=== PATIENT | female | born 1940 | race Caucasian/White ===

== ENCOUNTER → 2018-02-04 | Outpatient (CLI) | payer MEDICARE | END | disposition home or self-care (01) | LOC: CFH 13:13 | PROVIDERS: ATTEND Internal Medicine | DX: J45.909 Unspecified asthma, uncomplicated (principal); M41.85 Other forms of scoliosis, thoracolumbar region; M51.35 Other intervertebral disc degeneration, thoracolumbar region; R06.00 Dyspnea, unspecified | CPT/HCPCS: 71250 ==

== ENCOUNTER → 2018-07-21 | Outpatient (CLI) | payer MEDICARE | END | disposition home or self-care (01) | LOC: CFH 13:13 | DX: R92.8 Other abnormal and inconclusive findings on diagnostic imaging of breast (principal); N63.12 Unspecified lump in the right breast, upper inner quadrant | CPT/HCPCS: 77065 ==

== ENCOUNTER 2018-07-22 09:37 | Outpatient (CLI) | payer MEDICARE ==
[2018-07-22] MEDS ORDERED: LIDOCAINE 1%-EPI 1:100K, 20ML ONE (11:08)
[2018-07-22] MEDS ORDERED: SODIUM BICARBONATE 4.0%, 5ML ONE (11:08)
[2018-07-22] MEDS ORDERED: LIDOCAINE 1%, 20ML ONE (11:08)
[2018-08-15] MEDS ORDERED: MECL12.52 PO (13:25)
[2018-08-15] MEDS ORDERED: HYDR25TA11 PO (13:25)
[2018-08-15] MEDS ORDERED: ESTR2TAB4 PO (13:25)
[2018-08-15] MEDS ORDERED: ALBU8.5H8 PO (13:25)
[2018-08-15] MEDS ORDERED: MONT10TA6 PO (13:25)
[2018-08-15] MEDS ORDERED: LOPE1TAB4 PO (13:25)
[2018-08-15] MEDS ORDERED: CRAN200C2 PO (13:25)
[2018-08-15] MEDS ORDERED: GLUCOSAMINE MSM PO (13:25)
[2018-08-15] MEDS ORDERED: VIT1CAPS44 PO (13:25)
[2018-08-15] MEDS ORDERED: VITAMIN D PO (13:25)
== END 2018-07-22 23:59 | disposition home or self-care (01) ==
LOC: CFH 09:37
DX: C50.911 Malignant neoplasm of unspecified site of right female breast (principal); Z17.0 Estrogen receptor positive status [ER+]
CPT/HCPCS: 19083; 77065; 88305; 88360; J3490; 19285; 88361

== ENCOUNTER → 2018-08-15 | Outpatient (CLI) | payer MEDICARE ==
[~2018-08-15] MED LIST: ALBU8.5H8 PO; CRAN200C2 PO; ESTR2TAB4 PO; GLUCOSAMINE MSM PO; HYDR25TA11 PO; LOPE1TAB4 PO; MECL12.52 PO; MONT10TA6 PO; VIT1CAPS44 PO; VITAMIN D PO
== END | disposition home or self-care (01) ==
LOC: STAR 12:39
PROVIDERS: ATTEND Surgery
DX: Z13.820 Encounter for screening for osteoporosis (principal)
CPT/HCPCS: 93005

== ENCOUNTER 2018-08-22 11:06 | Day surgery (SDC) | payer MEDICARE ==
[2018-08-15 13:29] VITALS: BP 114/78
[~2018-08-22] VITALS: Ht 167.6 cm; Wt 69.1 kg
[~2018-08-22 11:06] MED LIST changes: +BUPIVACAINE/PF-EPI 0.5% 1:200K ONE; +ISOSULFAN BLUE 10 MG/ML, 5ML IV ONE
[2018-08-22] MEDS ORDERED: ONDANSETRON ODT 8 MG PO ONE ×2 (11:30)
[2018-08-22] MEDS ORDERED: ACETAMINOPHEN 500 MG TABLET PO ONE ×2 (11:30)
[2018-08-22] MEDS ORDERED: LACTATED RINGERS 1,000 ML IV SCH (11:41)
[2018-08-22 11:45] VITALS: BP 114/78
[2018-08-22] MEDS ORDERED: LIDOCAINE-MPF 1%, 5ML ONE (11:50)
[2018-08-22] MEDS ORDERED: MIDAZOLAM 1 MG/ML, 2ML ONE (12:20)
[2018-08-22] MEDS ORDERED: FENTANYL PF 250 MCG/5ML ONE (12:20)
[2018-08-22] MEDS ORDERED: OXYcodone 5 MG/5 ML ORAL.SOL UDC PO PRN (13:30)
[2018-08-22] MEDS ORDERED: ALBUTEROL/IPRATROPIUM 2.5MG/0.5MG, 3 ML NPPB PRN (13:30)
[2018-08-22] MEDS ORDERED: MIDAZOLAM 1 MG/ML, 2ML IV PRN (13:30)
[2018-08-22] MEDS ORDERED: MEPERIDINE/PF 25MG/0.5ML IVPush PRN (13:30)
[2018-08-22] MEDS ORDERED: hydrALAzine 20 MG/ML, 1ML IV PRN (13:30)
[2018-08-22] MEDS ORDERED: PROMETHAZINE 25 MG/ML, 1ML IV PRN (13:30)
[2018-08-22] MEDS ORDERED: ONDANSETRON 2MG/ML, 2ML IV PRN (13:30)
[2018-08-22] MEDS ORDERED: HYDROmorphone 2 MG/ML, 1ML IVPush PRN (13:30)
[2018-08-22] MEDS ORDERED: PROPOFOL 10 MG/ML, 20ML ONE (13:41)
[2018-08-22] MEDS ORDERED: CEFAZOLIN 1,000 MG ONE (13:41)
[2018-08-22] MEDS ORDERED: OXYcodone 5 MG/5 ML ORAL.SOL UDC ONE (14:06)
[2018-08-22] MEDS ORDERED: FENTANYL PF 100 MCG/2ML ONE (14:29)
[2018-08-22] MEDS: FENTANYL PF 100 MCG/2ML IV PRN ×2 (14:31→14:41)
== END 2018-08-22 16:35 | disposition home or self-care (01) ==
LOC: OUT 11:06 → EDSTATUS 14:30 → OUT 16:35
PROVIDERS: ATTEND Surgery
DX: D05.11 Intraductal carcinoma in situ of right breast (principal); R59.1 Generalized enlarged lymph nodes; J45.909 Unspecified asthma, uncomplicated; Z87.39 Personal history of other diseases of the musculoskeletal system and connective tissue; Z98.890 Other specified postprocedural states; Z72.89 Other problems related to lifestyle; Z87.891 Personal history of nicotine dependence
CPT/HCPCS: 19301; 38525; 38792; 76098; 88305; 88307; A9541; C1729; J0690; J2250; J2704; J3010; J7120; Q0162

== ENCOUNTER 2018-09-08 08:15 | Outpatient (CLI) | payer MEDICARE ==
[~2018-09-08 08:15] MED LIST changes: -BUPIVACAINE/PF-EPI 0.5% 1:200K ONE; -ISOSULFAN BLUE 10 MG/ML, 5ML IV ONE
== END 2018-09-08 23:59 | disposition home or self-care (01) ==
LOC: ROC 08:15
PROVIDERS: ATTEND Radiology Radiation Oncology
DX: Z08 Encounter for follow-up examination after completed treatment for malignant neoplasm (principal); R53.0 Neoplastic (malignant) related fatigue; Z85.3 Personal history of malignant neoplasm of breast; Z87.891 Personal history of nicotine dependence; Z72.89 Other problems related to lifestyle
CPT/HCPCS: 99214; G0463

== ENCOUNTER 2018-11-10 09:47 | Outpatient (CLI) | payer MEDICARE | END 2018-11-10 23:59 | disposition home or self-care (01) | LOC: ROC 09:47 | PROVIDERS: ATTEND Radiology Radiation Oncology | DX: Z08 Encounter for follow-up examination after completed treatment for malignant neoplasm (principal); Z85.3 Personal history of malignant neoplasm of breast | CPT/HCPCS: 99213; G0463 ==

== ENCOUNTER → 2018-12-29 | Outpatient (CLI) | payer MEDICARE | END | disposition home or self-care (01) | LOC: CFH 13:31 | PROVIDERS: ATTEND Internal Medicine Hematology & Oncology | DX: C50.211 Malignant neoplasm of upper-inner quadrant of right female breast (principal) | CPT/HCPCS: 77065; G0279 ==

== ENCOUNTER 2019-01-26 07:28 | Outpatient (CLI) | payer MEDICARE | END 2019-01-26 23:59 | disposition home or self-care (01) | LOC: ROC 07:28 | PROVIDERS: ATTEND Radiology Radiation Oncology | DX: Z08 Encounter for follow-up examination after completed treatment for malignant neoplasm (principal); Z85.3 Personal history of malignant neoplasm of breast | CPT/HCPCS: 99213; G0463 ==

== ENCOUNTER → 2019-06-22 | Outpatient (CLI) | payer MEDICARE ==
[~2019-06-22] MED LIST changes: +ALBU2.5V NEB; +FLUT1AER INH; +HYDR-826 PO; -HYDR25TA11 PO; +PRED20TA PO
== END | disposition home or self-care (01) ==
LOC: CFH 12:04
PROVIDERS: ATTEND Radiology Radiation Oncology
DX: C50.211 Malignant neoplasm of upper-inner quadrant of right female breast (principal)
CPT/HCPCS: 77066; G0279

== ENCOUNTER 2019-06-23 14:29 | Observation (INO) | payer MEDICARE ==
[~2019-06-23] VITALS: Ht 167.6 cm; Wt 17.3 kg
[~2019-06-23 14:29] MED LIST changes: -ALBU2.5V NEB; -FLUT1AER INH; -PRED20TA PO
--- NOTE | 2019-06-23 14:44 | NUR ---
PT QUINCY CHILDS FROM DR. LAST'S OFFICE FOR TACHYPNEA/LOW O2 SATURATION. PT HAS HX OF ALLERGY-INDUCED ASTHMA, C/O SOB X A COUPLE DAYS. STATES SHE'S BEEN MOVING ALL HER STUFF OUT OF HER HOUSE AND "THERE'S A LOT OF DUST". ALSO C/O COUGH WITH GREEN PHLEGM. PER EMS, SPO2 WAS 84% ON RA, INCREASED TO 95% ON 4L. IV STARTED BY EMS. OTHER VS: 137/91, HR 98, RR 30. PT ARRIVES TO ED A&OX4, RR 30s, O2 IN PLACE AT 4L NC. ERP AT BS NOW.
--- NOTE | 2019-06-23 14:54 | NUR ---
AT BS. PT UNDERSTANDS POC.
[2019-06-23] MEDS ORDERED: SODIUM CHLORIDE FLUSH 10ML SYR IVF ONE (15:00)
[2019-06-23 15:05] LABS: MEAN CORPUSCULAR VOLUME 90.7 fL (80-100); RED BLOOD COUNT 4.62 x10^6/uL (3.82-5.3)
[2019-06-23 15:06] LABS: BASOPHILS # (AUTO) 0.02 x10^3/uL (0-0.1); BASOPHILS % (AUTO) 0 % (0-1); EOSINOPHILS # (AUTO) 0.13 x10^3/uL (0-0.4); EOSINOPHILS % (AUTO) 2 % (1-7); LYMPHOCYTES # (AUTO) 0.41 x10^3/uL (1-3.4); LYMPHOCYTES % (AUTO) 6 % (22-44); MD NO; MEAN CORPUSCULAR HEMOGLOBIN 30.3 pg (27.0-34.8); MEAN CORPUSCULAR HGB CONC 33.4 g/dL (32.4-35.8); MEAN PLATELET VOLUME 7.9 fL (7.4-10.4); MONOCYTES # (AUTO) 1.03 x10^3/uL (0.2-0.8); MONOCYTES % (AUTO) 16 % (2-9); NEUTROPHILS % (AUTO) 76 % (42-75); PLATELET COUNT 258 x10^3/uL (130-400); RED CELL DISTRIBUTION WIDTH 12.9 % (9.6-15.2)
--- NOTE | 2019-06-23 15:11 | NUR ---
PT AMBULATED TO BR WITHOUT DIFFICULTY.
--- NOTE | 2019-06-23 15:12 | NUR ---
Note ling in EDM - 06/23/19 at 1513 by HOMAR PT STATES SHE CAN'T PROVIDE A URINE SAMPLE. SWEARING, WANTS TO LEAVE. ERP NOTIFIED.
[2019-06-23 15:21] LABS: ALBUMIN 3.3 g/dL (3.4-5.0); ANION GAP 6 mmol/L (5-15); CALCIUM 8.6 mg/dL (8.5-10.1); CHLORIDE 107 mmol/L (98-107)
[2019-06-23 15:27] LABS: CREATININE 0.56 mg/dL (0.55-1.02); TROPONIN I < 0.015 ng/mL (0.000-0.045)
--- NOTE | 2019-06-23 15:35 | NUR ---
UPDATED PT ON POC. AT BS.
[2019-06-23] MEDS ORDERED: FLUT1AER INH (16:04)
[2019-06-23 16:12] LABS: MICROSCOPIC AUTO
[2019-06-23 16:25] LABS: CULTURE INDICATED? NO
--- NOTE | 2019-06-23 16:40 | NUR ---
PT UNDERSTANDS PLAN FOR THORACENTESIS. C/O 11/11 PAIN TO L CHEST, ERP NOTIFIED. VSS.
[2019-06-23] MEDS ORDERED: MORPHINE SULFATE 4 MG/ML, 1ML IVPush PRN (17:00)
[2019-06-23] MEDS ORDERED: ONDANSETRON 2MG/ML, 2ML IVPush ONE (17:00)
--- NOTE | 2019-06-23 17:01 | NUR ---
PT STATES L SIDED CHEST PAIN RESOLVED NOW, DECLINES MEDICATION. STATES, "IT WAS LIKE GAS PAIN BUT IT'S GONE NOW".
--- NOTE | 2019-06-23 17:16 | NUR ---
RADIOLOGIST AT BS FOR THORACENTESIS.
[2019-06-23] MEDS ORDERED: LIDOCAINE 1%, 10ML ONE (17:25)
--- NOTE | 2019-06-23 18:02 | NUR ---
THORACENTESIS DONE, PT TOLERATED WELL. 1L OF FLUID REMOVED. GAUZE/TEGADERM DRESSING TO L CHEST, CDI. PT STATES SHE FEELS MUCH BETTER. AMBULATED TO WITH STAND BY ASSIST WITHOUT DIFFICULTY.
--- NOTE | 2019-06-23 18:25 | NUR ---
REPORT RECEIVED FROM CANDICE MARSHALL.
--- NOTE | 2019-06-23 18:30 | NUR ---
ERP UPDATED ON PT STATUS. PT AND UPDATED ON POC. PT MOVED TO ROOM 2 FOR HOUSE CONVENIENCE. REPORTED TO ALETHEA RN & AZUCENA RN.
--- NOTE | 2019-06-23 18:31 | NUR ---
PATIENT AMBULATED AROUND UNIT WITH A STEADY GAIT. O2 SAT 85%, HR 90-105 WHILE AMBULATING. PATIENT SITTING ON GURNEY 88% ON ROOM AIR. WILL NOTIFY PROVIDER.
--- NOTE | 2019-06-23 18:51 | NUR ---
NOTIFIED DR. RYAN THAT PATIENT'S ROOM AIR SPO2 WHILE AMBULATING AVERAGED ABOUT 85% AND DIPPED LOW 83%. PATIENT TO BE ADMITTED.
--- NOTE | 2019-06-23 19:01 | NUR ---
report received from julio/sravan bran.
--- NOTE | 2019-06-23 19:22 | NUR ---
PT TO CT AT THIS TIME.
[2019-06-23] MEDS ORDERED: CRANBERRY EXTRACT 200 MG PO SCH (19:30)
[2019-06-23] MEDS ORDERED: POLYETHYLENE GLYCOL 17 GM PACKET PO PRN (19:30)
[2019-06-23] MEDS ORDERED: ACETAMINOPHEN 325 MG TABLET PO PRN (19:30)
[2019-06-23] MEDS ORDERED: OXYcodone IR 5MG TABLET PO PRN (19:30)
[2019-06-23] MEDS ORDERED: ONDANSETRON ODT 4 MG PO PRN (19:30)
[2019-06-23] MEDS ORDERED: BISACODYL 10 MG SUPP PR PRN (19:30)
--- NOTE | 2019-06-23 19:36 | NUR ---
PT'S Xavier Victor [phone]
--- NOTE | 2019-06-23 19:36 | NUR ---
PT BACK TO ROOM FROM CT AT THIS TIME.
--- NOTE | 2019-06-23 20:25 | NUR ---
FOOD TRAY PROVIDED AT THIS TIME.
[2019-06-23] MEDS: SODIUM CHLORIDE FLUSH 10ML SYR IVF SCH (21:00)
--- NOTE | 2019-06-23 22:14 | NUR ---
PT'S AT BEDSIDE AT THIS TIME. PT RESTING IN RMI[place]I. PT'S AOX4. RESPS EVEN AND UNLABORED.
--- NOTE | 2019-06-23 22:33 | NUR ---
PT AMB TO BR AND BACK TO ROOM WITH PT'S WITH STEADY GAIT.
--- NOTE | 2019-06-23 23:32 | NUR ---
PT SLEEIPNG IN RPHELPS. RESPS EVEN AND UNLABORED.
[2019-06-24] VITALS (8 sets, daily range): BP systolic 80–120; BP diastolic 51–73
[2019-06-24] MEDS ORDERED: OMNIPAQUE 350 MG/ML, 100ML BOTTLE ONE (00:02)
--- NOTE | 2019-06-24 00:24 | NUR ---
HOSPITAL BED IN ROOM. PT RESTING, PT'S AOX4, RESPS EVEN AND UNLABORED. MARY SILVERIO PLACED.
--- NOTE | 2019-06-24 00:54 | NUR ---
THIS RN CALLED HER AND UPDATED INFO.
[2019-06-24] MEDS: BUDESONIDE 0.5 MG/2 ML INHA NPPB SCH ×3 (01:30→18:57)
[2019-06-24] MEDS ORDERED: SODIUM CHLORIDE 0.9%, 500ML IVBOLUS ONE ×2 (03:45→05:00)
[2019-06-24 05:27] LABS: ALBUMIN 2.6 g/dL (3.4-5.0); ANION GAP 7 mmol/L (5-15); CALCIUM 7.7 mg/dL (8.5-10.1); CHLORIDE 108 mmol/L (98-107)
[2019-06-24 05:30] LABS: BASOPHILS # (AUTO) 0.01 x10^3/uL (0-0.1); BASOPHILS % (AUTO) 0 % (0-1); EOSINOPHILS # (AUTO) 0.01 x10^3/uL (0-0.4); EOSINOPHILS % (AUTO) 0 % (1-7); LYMPHOCYTES # (AUTO) 0.82 x10^3/uL (1-3.4); LYMPHOCYTES % (AUTO) 12 % (22-44); MD NO; MEAN CORPUSCULAR HEMOGLOBIN 29.9 pg (27.0-34.8); MEAN CORPUSCULAR HGB CONC 33.5 g/dL (32.4-35.8); MEAN CORPUSCULAR VOLUME 89.3 fL (80-100); MEAN PLATELET VOLUME 7.8 fL (7.4-10.4); MONOCYTES # (AUTO) 1.14 x10^3/uL (0.2-0.8); MONOCYTES % (AUTO) 17 % (2-9); NEUTROPHILS # (AUTO) 4.67 x10^3/uL (1.8-6.8); NEUTROPHILS % (AUTO) 70 % (42-75); PLATELET COUNT 216 x10^3/uL (130-400); RED BLOOD COUNT 3.92 x10^6/uL (3.82-5.3); RED CELL DISTRIBUTION WIDTH 13.1 % (9.6-15.2)
[2019-06-24 05:31] LABS: ALANINE AMINOTRANSFERASE 22 U/L (12-78); ALKALINE PHOSPHATASE 54 U/L (45-117); BILIRUBIN,TOTAL 0.3 mg/dL (0.2-1.0); TOTAL PROTEIN 5.4 g/dL (6.4-8.2)
[2019-06-24] MEDS: SODIUM CHLORIDE FLUSH 10ML SYR IVF SCH ×2 (08:14→20:39)
[2019-06-24] MEDS ORDERED: SENNA/DOCUSATE TABLET PO SCH (09:00)
[2019-06-24] MEDS: ALBUTEROL SULFATE 2.5 MG/3 ML NPPB SCH ×4 (09:14→18:57)
[2019-06-24] MEDS ORDERED: GADOTERATE 10 MMOL/20 ML VIAL ONE (13:00)
[2019-06-24] MEDS ORDERED: MEDROL 4MG DOSEPAK PO SCH (16:30)
[2019-06-25 00:32] VITALS: BP 134/86
[2019-06-25 00:41] VITALS: BP 127/77
[2019-06-25 05:54] LABS: BASOPHILS # (AUTO) 0.01 x10^3/uL (0-0.1); BASOPHILS % (AUTO) 0 % (0-1); EOSINOPHILS # (AUTO) 0.06 x10^3/uL (0-0.4); EOSINOPHILS % (AUTO) 1 % (1-7); LYMPHOCYTES # (AUTO) 0.75 x10^3/uL (1-3.4); LYMPHOCYTES % (AUTO) 14 % (22-44); MD NO; MEAN CORPUSCULAR HGB CONC 32.8 g/dL (32.4-35.8); MEAN CORPUSCULAR VOLUME 91.6 fL (80-100); MEAN PLATELET VOLUME 8.2 fL (7.4-10.4); MONOCYTES # (AUTO) 0.46 x10^3/uL (0.2-0.8); MONOCYTES % (AUTO) 8 % (2-9); NEUTROPHILS # (AUTO) 4.29 x10^3/uL (1.8-6.8); NEUTROPHILS % (AUTO) 77 % (42-75); PLATELET COUNT 223 x10^3/uL (130-400); RED BLOOD COUNT 4.36 x10^6/uL (3.82-5.3)
[2019-06-25 06:01] LABS: ANION GAP 6 mmol/L (5-15); CALCIUM 8.4 mg/dL (8.5-10.1); CHLORIDE 110 mmol/L (98-107)
[2019-06-25 06:03] LABS: CREATININE 0.47 mg/dL (0.55-1.02)
[2019-06-25] MEDS: ALBUTEROL SULFATE 2.5 MG/3 ML NPPB SCH ×2 (06:40→10:30)
[2019-06-25] MEDS: BUDESONIDE 0.5 MG/2 ML INHA NPPB SCH (06:40)
[2019-06-25 07:17] VITALS: BP 127/76
[2019-06-25] MEDS: SODIUM CHLORIDE FLUSH 10ML SYR IVF SCH (08:08)
[2019-06-25] MEDS ORDERED: PRED20TA PO (10:06)
[2019-06-25] MEDS ORDERED: ALBU2.5V NEB (10:06)
== END 2019-06-25 13:28 | disposition home or self-care (01) ==
LOC: ED 15:26 → INTOOBSV 19:23 → EDIP 19:23 → 4EST 06-24 01:02
PROVIDERS: ADMIT Family Medicine; ATTEND Family Medicine
DX: J90 Pleural effusion, not elsewhere classified (principal); H40.9 Unspecified glaucoma; M19.90 Unspecified osteoarthritis, unspecified site; I34.1 Nonrheumatic mitral (valve) prolapse; K76.9 Liver disease, unspecified; J45.909 Unspecified asthma, uncomplicated; Z85.3 Personal history of malignant neoplasm of breast; Z90.710 Acquired absence of both cervix and uterus; Z96.652 Presence of left artificial knee joint; Z96.643 Presence of artificial hip joint, bilateral; Z87.891 Personal history of nicotine dependence; Z79.899 Other long term (current) drug therapy
CPT/HCPCS: 32555; 36415; 71045; 71275; 74183; 80048; 80053; 81001; 82040; 82150; 82945; 83605; 83615; 83880; 83986; 84145; 84157; 84484; 85025; 85379; 87070; 87075; 87102; 87205; 88112; 88305; 88341; 88342; 89051; 93005; 93306; 94640; 99284; A9575; G0378; J3490; J7040; J7509; J7613; J7626; Q9967; 99285